=== PATIENT | male | born 1995 | race Caucasian/White ===

== ENCOUNTER 2016-08-08 20:18 | Emergency (ER) | payer MEDICAID, OTHER ==
[~2016-08-08] VITALS: Ht 160 cm; Wt 60.5 kg
[2016-08-08 20:22] VITALS: Ht 160 cm; Wt 60.5 kg
[2016-08-08] MEDS ORDERED: TETRACAINE 0.5% 4 ML OPH RIGHT EYE ONE (21:00)
[2016-08-08] MEDS ORDERED: FLUORESCEIN STRIP RIGHT EYE ONE (21:00)
[2016-08-08] MEDS ORDERED: TBR.3OO RIGHT EYE (21:09)
[2016-08-08] MEDS ORDERED: OPHTHALMIC IRRIG SOLUTION 120 ML RIGHT EYE ONE (21:30)
--- NOTE | 2016-08-08 21:40 | ERD ---
ER Documentation Chief Complaint Date/Time DATE: 08/08/16 TIME: 21:32 Chief Complaint something in eye while cooking 30 min ago HPI This is a 20-year-old male presents to the ER with right eye pain that occurred while he was cooking something at work. Patient states that he thinks he got an anion sausage into his eye. She states that his eye began to burn and got very watery. He tried washing eye out at work however I continued to burn. Patient denies any discharge from the eye. He denies any vision loss, blurry vision. Patient denies seeing any halos, flashes of light. He denies any photophobia, double vision. He denies any swelling around the eye. He denies any painful movement of the eye. He does not have any fevers or chills. He denies nausea or vomiting. Patient does not wear corrective glasses or contacts. ROS 12 point review of systems was done, all negative except per HPI. Medications Home Meds Active Scripts Tobramycin Sulfate* (Tobrex*) 3.5 Gm Oint..gm., 1 APPLIC RIGHT EYE TID for 7 Days, EA Prov:KRISTEN ZHOU Ivis 08/08/16 Allergies Allergies: Coded Allergies: No Known Allergy (Unverified , 08/08/16) PMhx/Soc Medical and Surgical Hx: pt denies Medical Hx, pt denies Surgical Hx Hx Alcohol Use: No Hx Substance Use: No Hx Tobacco Use: No Smoking Status: Never smoker Physical Exam Vitals Vital Signs Date Time Temp Pulse Resp B/P Pulse Ox O2 Delivery O2 Flow Rate FiO2 08/08/16 20:22 98.7 61 18 129/77 100 Physical Exam GENERAL: The patient is well developed and appropriate for usual state of health , in no apparent distress. HEENT: Atraumatic. Injected conjunctiva, no discharge. PEERL. Nonpainful extraocular movements. No periorbital erythema warmth or tenderness. No Erythema , crusting or swelling of the eyelids. No enophthalmos or exophthalmos. Cornea is grossly clear not steamy no obvious foreign body hyphema or hypopyon NECK: C-spine is soft and supple. There is no cervical lymphadenopathy. CHEST: Clear to auscultation bilaterally. There are no rales, wheezes or rhonchi. HEART: Regular rate and rhythm. No murmurs, clicks, rubs or gallops. NEURO: Alert and oriented. Results 24 hrs Current Medications Medications (Trade) Dose Ordered Sig/Shirley Route PRN Reason Start Time Stop Time Status Last Admin Dose Admin Tetracaine HCl (Tetracaine 0.5% Steri-Unit Joselyn) 1 drop ONCE ONCE RIGHT EYE 08/08/16 21:00 08/08/16 21:01 DC Fluorescein Sodium (Eyblw-B-Treyr) 1 strip ONCE ONCE RIGHT EYE 08/08/16 21:00 08/08/16 21:01 DC Irrigating Solution (Eye Wash) 1 applic ONCE ONCE RIGHT EYE 08/08/16 21:30 08/08/16 21:31 DC 08/08/16 21:31 Procedures/MDM Eye was examined with fluorescein staining. There is no evidence of foreign body , corneal abrasion, corneal ulcerations. Subconjunctival hemorrhage, bacterial conjunctivitis, viral conjunctivitis, allergic conjunctivitis,orbital cellulitis, hyphema, corneal abrasion, keratitis , uveitis, angle-closure glaucoma, retinal detachment, ruptured globe, retrobulbar hematoma. Patient likely got any in soft and his eye which caused burning of the eye. Upon fluorescein examination patient stated that his eye felt completely better. Eye was examined and irrigated. Patient will be sent home with tobramycin and should follow-up with an stunt performer tomorrow. My medical decision making was shared with the patient understands and agrees with plan. Departure Diagnosis: Primary Impression: Eye injury Condition: Stable Patient Instructions: Eye Protection at Work: First Aid Referrals: [facility] Hours: Mon - Fri 9:00 AM - 5:00 PM Additional Instructions: Llame al doctor DENILSON y moisés mayte TOREY PARA DENTRO DE 1-2 BARRIENTOS.Dgale a la secretaria que nosotros le instruimos hacer esta torey.Avise o llame si robison condicin se empeora antes de la torey. Regresa aqui si peor o no mejor. KRISTEN ZHOU Aug 08, 2016 21:40
[2016-08-08 21:44] VITALS: BP 134/68; PULSE 58; RESP 20; TEMP 98.3
== END 2016-08-08 21:47 | disposition home or self-care (01) ==
LOC: FTE 20:18
DX: S05.91XA Unspecified injury of right eye and orbit, initial encounter (principal); X58.XXXA Exposure to other specified factors, initial encounter; Y92.89 Other specified places as the place of occurrence of the external cause
CPT/HCPCS: Z7610 ×3; 99283